=== PATIENT | female | born 1960 | race Caucasian/White ===

== ENCOUNTER 2021-09-06 15:23 | Outpatient (CLI) | payer BC | END 2021-09-06 15:24 | disposition home or self-care (01) | LOC: LABBT 15:23 | PROVIDERS: ATTEND Orthopaedic Surgery | DX: Z01.818 Encounter for other preprocedural examination (principal); M17.12 Unilateral primary osteoarthritis, left knee; Z20.822 Contact with and (suspected) exposure to COVID-19 | CPT/HCPCS: 71046; 93005; 93010 ==

== ENCOUNTER 2021-09-11 05:45 | Inpatient (IN) | payer BC ==
[2021-09-06 16:37] LABS: Bilirubin Neg (Negative); Blood, Urine Negative (Negative); Clarity Clear (Clear); Glucose, Urine (Dipstick) Normal (Negative); Ketone, Urine Negative (Negative); Leukocyte Negative (Negative); Nitrite Negative (Negative); Protein, Urine (Dipstick) 30 mg/dl (Neg-Trace)
[2021-09-06 16:46] LABS: Anion Gap 16 mmol/L (10-20); BUN (Urea Nitrogen) 16 mg/dL (9.8-20.1); Calc. Creatinine Clearance 0 mL/min (70-130); Calcium 9.4 mg/dL (7.8-10.44); Carbon Dioxide 24 mmol/L (23-31); Chloride 104 mmol/L (98-107); Estimated GFR 85; Glucose 104 mg/dL (80-115); Sodium 140 mmol/L (136-145)
[2021-09-06 17:03] LABS: INR-International Normal Ratio 0.9; Prothrombin Time 9.4 sec (9.5-12.1)
[2021-09-07 16:56] VITALS: BMI 38.0
[2021-09-11] MEDS ORDERED: Vancomycin 1.5 GRAM/300 ML BAG 1.5 GM in Premix Bag 1 BAG IVPB SCH (06:15)
[2021-09-11] MEDS ORDERED: fentaNYL Citrate/PF 100 MCG/2 ML SYRINGE ONE ×2 (06:17→08:06)
[2021-09-11] MEDS ORDERED: Dexmedetomidine 200 MCG/2 ML VIAL ONE (06:18)
[2021-09-11] MEDS ORDERED: Tranexamic Acid 1,000 MG/10 ML VIAL ONE (06:33)
[2021-09-11] MEDS ORDERED: Sodium Chloride 0.9% 100 ML ONE ×2 (06:33→06:53)
[2021-09-11] MEDS ORDERED: Vancomycin (BATCH) 1.5 GRAM/300 ML BAG ONE (06:42)
[2021-09-11] MEDS ORDERED: Promethazine HCl 25 MG/ML VIAL IM PRN ×3 (06:45→09:30)
[2021-09-11] MEDS ORDERED: Ondansetron HCl/PF 4 MG/2 ML Vial IVP PRN (06:45)
[2021-09-11] MEDS ORDERED: Promethazine HCl 25 MG/ML VIAL IVPB PRN (06:45)
[2021-09-11] MEDS ORDERED: Lidocaine 1% PF 5 ML VIAL ONE (06:51)
[2021-09-11] MEDS ORDERED: Bupivacaine HCl 0.5%/Epinephrine 1:200,000/PF 30 ml Vial ONE (06:51)
[2021-09-11] MEDS ORDERED: Ondansetron PF 4 MG/2 ML Vial ONE (06:51)
[2021-09-11] MEDS ORDERED: Dexamethasone 20 MG/5 ML VIAL ONE (06:51)
[2021-09-11] MEDS ORDERED: PROPOFOL 200 MG/20 ML VIAL ONE (06:51)
[2021-09-11] MEDS ORDERED: ePHEDrine 50 MG/ML VIAL ONE (06:51)
[2021-09-11] MEDS ORDERED: diphenhydrAMINE 50 MG/ML VIAL ONE (06:51)
[2021-09-11] MEDS ORDERED: Bupivacaine 0.25% HCL 30 ML VIAL ONE (06:53)
[2021-09-11] MEDS ORDERED: CEFAZOLIN 2 GM VIAL ONE (06:53)
[2021-09-11] MEDS ORDERED: Lidocaine 1% (PF) 30 ML VIAL ONE (07:09)
[2021-09-11 07:10] LABS: #Basophils 0.1 thou/uL (0.0-0.2); #Eosinphils 0.1 thou/uL (0.0-0.7); #Monocytes 0.8 thou/uL (0.11-0.59); #Neutrophils 4.7 thou/uL (1.40-6.50); %Basophils 0.7 % (0.0-1.0); %Eosinophils 1.2 % (0.0-10.0); %Lymphocytes 35.2 % (21.0-51.0); %Monocytes 8.9 % (0.0-10.0); Hemoglobin 13.8 g/dL (12.0-16.0); Mean Corpuscular HGB CONC 32.9 g/dL (32.0-36.0); Mean Corpuscular Hemoglobin 30.3 pg (27.0-31.0); Mean Corpuscular Volume 92.2 fL (78.0-98.0); Mean Platelet Volume 7.4 fL (7.4-10.4); Platelet Count 255 thou/uL (130-400); RBC Distribution Width 11.7 % (11.5-14.5); Red Blood Cell (RBC) Count 4.54 mill/uL (4.20-5.40); White Blood Cell (WBC) Count 8.7 thou/uL (4.8-10.8)
[2021-09-11 07:11] LABS: INR-International Normal Ratio 0.9; Prothrombin Time 12.6 sec (12.0-14.7)
[2021-09-11] MEDS ORDERED: HYDROcodone/Acetaminophen 10/325 mg Tablet PO PRN ×3 (07:52→09:30)
[2021-09-11] MEDS ORDERED: Zolpidem Tartrate 5 MG TAB PO PRN ×2 (07:52→09:30)
[2021-09-11] MEDS ORDERED: Acetaminophen 325 MG TAB PO PRN (07:52)
[2021-09-11] MEDS ORDERED: diphenhydrAMINE 25 MG CAP PO PRN (07:52)
[2021-09-11] MEDS ORDERED: Fentanyl 100 MCG/2 ML VIAL SLOW IVP PRN (07:52)
[2021-09-11] MEDS ORDERED: Ondansetron PF 4 MG/2 ML Vial IVP PRN ×2 (07:52→09:30)
[2021-09-11] MEDS ORDERED: traMADol HCl 50 MG TAB PO PRN ×2 (07:52→09:30)
[2021-09-11] MEDS ORDERED: Fluticasone Propionate Nasal Spray 16 gm Bottle NASAL PRN (07:55)
[2021-09-11] MEDS ORDERED: ceFAZolin 2 GM/Dextrose 50 ML 2 GM in Premix Bag 1 BAG IVPB SCH (08:00)
[2021-09-11] MEDS ORDERED: Tranexamic Acid 1,000 MG in Sodium Chloride 0.9% 100 ML IVPB SCH (08:00)
[2021-09-11] MEDS ORDERED: Non-Formulary Item 1 EACH (Losartan Potassium [Cozaar] 50 MG Tab) PO SCH (09:00)
[2021-09-11] MEDS ORDERED: Cetirizine HCl 10 MG TAB PO SCH (09:00)
[2021-09-11] MEDS ORDERED: Non-Formulary Item 1 EACH (Bupropion Hcl [Wellbutrin Xl] 300 MG Tab.Er.24h) PO SCH (09:00)
[2021-09-11] MEDS ORDERED: Levothyroxine 150 MCG TAB PO SCH (09:00)
[2021-09-11] MEDS ORDERED: Fentanyl 100 MCG/2 ML VIAL IV PRN (09:17)
[2021-09-11] MEDS ORDERED: Ropivacaine 0.2% 550 ML 550 ML NERVE BLCK SCH (09:30)
[2021-09-11] MEDS ORDERED: Fentanyl 100 MCG/2 ML VIAL ONE ×3 (09:46→11:41)
[2021-09-11] MEDS ORDERED: Ketorolac Tromethamine 30 MG/ML VIAL ONE (10:04)
[2021-09-11] MEDS: HYDROcodone/Acetaminophen 10/325 mg Tablet PO PRN ×3 (12:10→22:17)
[2021-09-11] MEDS: CEFAZOLIN 2 GM in Sodium Chloride 0.9% 100 ML IVPB SCH ×2 (13:16→22:24)
[2021-09-11] MEDS: Losartan 25 MG TAB PO SCH (13:17)
[2021-09-11] MEDS: Multivitamin W/ Minerals 1 TAB PO SCH (13:17)
[2021-09-11] MEDS: Pregabalin 50 MG CAP PO SCH ×3 (13:17→22:18)
[2021-09-11] MEDS: Bupropion 150 MG XL TAB PO SCH (13:18)
[2021-09-11] MEDS: Ferrous Gluconate 324 MG TAB PO SCH ×2 (13:18→22:17)
[2021-09-11] MEDS: Sodium Chloride 0.9% 1,000 ML IV SCH ×2 (13:19→18:17)
[2021-09-11] MEDS: Loratadine 10 MG TAB PO SCH (13:19)
[2021-09-11] MEDS: Senokot S 8.6-50 MG TAB PO SCH ×2 (13:19→22:18)
[2021-09-11] MEDS: Ketorolac Tromethamine 30 MG/ML VIAL IVP SCH ×3 (13:19→22:26)
[2021-09-11] MEDS: Aspirin 81 mg Enteric Coated Tablet PO SCH ×2 (13:21→22:18)
[2021-09-11] MEDS ORDERED: Ketorolac Tromethamine 30 MG/ML VIAL IVP SCH (14:00)
[2021-09-11] MEDS ORDERED: Vancomycin HCl 1.5 GM in Sodium Chloride 0.9% 250 ML 300 ML IVPB SCH (18:00)
[2021-09-11] MEDS: clonazePAM 1 MG TAB PO SCH (22:17)
[2021-09-12] MEDS: Ketorolac Tromethamine 30 MG/ML VIAL IVP SCH ×3 (05:10→17:28)
[2021-09-12] MEDS: HYDROcodone/Acetaminophen 10/325 mg Tablet PO PRN ×4 (05:11→19:05)
[2021-09-12 06:03] LABS: Hemoglobin 11.6 g/dL (12.0-16.0); Mean Corpuscular HGB CONC 33.2 g/dL (32.0-36.0); Mean Corpuscular Hemoglobin 30.7 pg (27.0-31.0); Mean Corpuscular Volume 92.4 fL (78.0-98.0); Mean Platelet Volume 8.7 fL (7.4-10.4); Platelet Count 179 thou/uL (130-400); RBC Distribution Width 11.6 % (11.5-14.5); Red Blood Cell (RBC) Count 3.77 mill/uL (4.20-5.40); White Blood Cell (WBC) Count 12.3 thou/uL (4.8-10.8)
[2021-09-12] MEDS: Levothyroxine 150 MCG TAB PO SCH (07:39)
[2021-09-12] MEDS: Sodium Chloride 0.9% 1,000 ML IV SCH ×2 (07:55→13:31)
[2021-09-12] MEDS: Senokot S 8.6-50 MG TAB PO SCH ×2 (09:10→22:36)
[2021-09-12] MEDS: Aspirin 81 mg Enteric Coated Tablet PO SCH ×2 (09:10→22:36)
[2021-09-12] MEDS: Ferrous Gluconate 324 MG TAB PO SCH ×2 (09:10→22:37)
[2021-09-12] MEDS: Multivitamin W/ Minerals 1 TAB PO SCH (09:10)
[2021-09-12] MEDS: Pregabalin 50 MG CAP PO SCH ×3 (09:11→22:36)
[2021-09-12] MEDS: Losartan 25 MG TAB PO SCH (09:11)
[2021-09-12] MEDS: Loratadine 10 MG TAB PO SCH (09:11)
[2021-09-12] MEDS: Bupropion 150 MG XL TAB PO SCH (09:17)
[2021-09-12] MEDS: traMADol HCl 50 MG TAB PO PRN ×2 (11:35→17:29)
[2021-09-12] MEDS ORDERED: Simethicone Chewable 80 MG TAB PO PRN (19:30)
[2021-09-12] MEDS: clonazePAM 1 MG TAB PO SCH (22:36)
[2021-09-13] MEDS: Ketorolac Tromethamine 30 MG/ML VIAL IVP SCH ×2 (00:14→06:02)
[2021-09-13] MEDS: Levothyroxine 150 MCG TAB PO SCH (06:01)
[2021-09-13] MEDS: HYDROcodone/Acetaminophen 10/325 mg Tablet PO PRN ×5 (06:01→21:32)
[2021-09-13 07:55] LABS: Hemoglobin 10.6 g/dL (12.0-16.0); Mean Corpuscular HGB CONC 33.6 g/dL (32.0-36.0); Mean Corpuscular Hemoglobin 31.1 pg (27.0-31.0); Mean Corpuscular Volume 92.7 fL (78.0-98.0); Mean Platelet Volume 7.5 fL (7.4-10.4); Platelet Count 194 thou/uL (130-400); RBC Distribution Width 11.7 % (11.5-14.5); Red Blood Cell (RBC) Count 3.39 mill/uL (4.20-5.40); White Blood Cell (WBC) Count 12.7 thou/uL (4.8-10.8)
[2021-09-13] MEDS: Sodium Chloride 0.9% 1,000 ML IV SCH ×3 (08:01→21:26)
[2021-09-13] MEDS: Bupropion 150 MG XL TAB PO SCH (10:19)
[2021-09-13] MEDS: Ferrous Gluconate 324 MG TAB PO SCH ×2 (10:19→21:31)
[2021-09-13] MEDS: Aspirin 81 mg Enteric Coated Tablet PO SCH ×2 (10:19→21:32)
[2021-09-13] MEDS: Pregabalin 50 MG CAP PO SCH ×3 (10:20→21:36)
[2021-09-13] MEDS: Loratadine 10 MG TAB PO SCH (10:20)
[2021-09-13] MEDS: Losartan 25 MG TAB PO SCH (10:20)
[2021-09-13] MEDS: Multivitamin W/ Minerals 1 TAB PO SCH (10:20)
[2021-09-13] MEDS: Metamucil PACK PO SCH ×2 (10:21→16:31)
[2021-09-13] MEDS: Senokot S 8.6-50 MG TAB PO SCH ×3 (10:21→21:39)
[2021-09-13] MEDS: traMADol HCl 50 MG TAB PO PRN (16:25)
[2021-09-13] MEDS: clonazePAM 1 MG TAB PO SCH (21:37)
[2021-09-14] MEDS: traMADol HCl 50 MG TAB PO PRN ×3 (03:25→20:49)
[2021-09-14] MEDS: Levothyroxine 150 MCG TAB PO SCH (05:42)
[2021-09-14] MEDS: HYDROcodone/Acetaminophen 10/325 mg Tablet PO PRN ×4 (05:42→18:33)
[2021-09-14 06:50] LABS: Mean Corpuscular HGB CONC 33.4 g/dL (32.0-36.0); Mean Corpuscular Hemoglobin 30.6 pg (27.0-31.0); Mean Corpuscular Volume 91.6 fL (78.0-98.0); Mean Platelet Volume 7.5 fL (7.4-10.4); Platelet Count 194 thou/uL (130-400); RBC Distribution Width 11.8 % (11.5-14.5); Red Blood Cell (RBC) Count 3.59 mill/uL (4.20-5.40); White Blood Cell (WBC) Count 12.2 thou/uL (4.8-10.8)
[2021-09-14] MEDS: Sodium Chloride 0.9% 1,000 ML IV SCH ×2 (10:12→14:26)
[2021-09-14] MEDS: Ferrous Gluconate 324 MG TAB PO SCH ×2 (10:15→20:48)
[2021-09-14] MEDS: Senokot S 8.6-50 MG TAB PO SCH ×2 (10:17→21:00)
[2021-09-14] MEDS: Bupropion 150 MG XL TAB PO SCH (10:17)
[2021-09-14] MEDS: Losartan 25 MG TAB PO SCH (10:18)
[2021-09-14] MEDS: Multivitamin W/ Minerals 1 TAB PO SCH ×2 (10:19→10:29)
[2021-09-14] MEDS: Loratadine 10 MG TAB PO SCH (10:19)
[2021-09-14] MEDS: Pregabalin 50 MG CAP PO SCH ×3 (10:19→20:48)
[2021-09-14] MEDS: Aspirin 81 mg Enteric Coated Tablet PO SCH ×2 (10:20→20:49)
[2021-09-14] MEDS: Metamucil PACK PO SCH ×2 (10:24→14:26)
[2021-09-14] MEDS: clonazePAM 1 MG TAB PO SCH (20:49)
[2021-09-15] MEDS: HYDROcodone/Acetaminophen 10/325 mg Tablet PO PRN ×5 (00:06→20:20)
[2021-09-15] MEDS: Sodium Chloride 0.9% 1,000 ML IV SCH ×3 (03:51→23:15)
[2021-09-15] MEDS: traMADol HCl 50 MG TAB PO PRN (04:53)
[2021-09-15] MEDS: Levothyroxine 150 MCG TAB PO SCH (04:54)
[2021-09-15 05:46] LABS: Hemoglobin 10.3 g/dL (12.0-16.0); Mean Corpuscular HGB CONC 32.5 g/dL (32.0-36.0); Mean Corpuscular Hemoglobin 30.5 pg (27.0-31.0); Mean Platelet Volume 7.4 fL (7.4-10.4); Platelet Count 222 thou/uL (130-400); RBC Distribution Width 11.7 % (11.5-14.5); Red Blood Cell (RBC) Count 3.36 mill/uL (4.20-5.40); White Blood Cell (WBC) Count 9.2 thou/uL (4.8-10.8)
[2021-09-15] MEDS: Bupropion 150 MG XL TAB PO SCH (07:55)
[2021-09-15] MEDS: Ferrous Gluconate 324 MG TAB PO SCH ×2 (07:55→20:19)
[2021-09-15] MEDS: Aspirin 81 mg Enteric Coated Tablet PO SCH ×2 (07:56→20:19)
[2021-09-15] MEDS: Pregabalin 50 MG CAP PO SCH ×3 (07:57→20:20)
[2021-09-15] MEDS: Loratadine 10 MG TAB PO SCH (07:58)
[2021-09-15] MEDS: Multivitamin W/ Minerals 1 TAB PO SCH (07:58)
[2021-09-15] MEDS: Losartan 25 MG TAB PO SCH (07:58)
[2021-09-15] MEDS: Metamucil PACK PO SCH (07:58)
[2021-09-15] MEDS: Senokot S 8.6-50 MG TAB PO SCH ×2 (07:58→21:04)
[2021-09-15] MEDS: Ibuprofen 600 MG TAB PO PRN ×2 (10:33→17:41)
[2021-09-15] MEDS: clonazePAM 1 MG TAB PO SCH (20:20)
[2021-09-16] MEDS: HYDROcodone/Acetaminophen 10/325 mg Tablet PO PRN ×4 (00:14→13:28)
[2021-09-16] MEDS: Ibuprofen 600 MG TAB PO PRN ×2 (00:15→09:27)
[2021-09-16] MEDS: Levothyroxine 150 MCG TAB PO SCH (05:57)
[2021-09-16 06:42] LABS: Mean Corpuscular HGB CONC 29.7 g/dL (32.0-36.0); Mean Corpuscular Hemoglobin 29.1 pg (27.0-31.0); Mean Platelet Volume 7.9 fL (7.4-10.4); Platelet Count 256 thou/uL (130-400); RBC Distribution Width 11.9 % (11.5-14.5); Red Blood Cell (RBC) Count 4.12 mill/uL (4.20-5.40); White Blood Cell (WBC) Count 8.1 thou/uL (4.8-10.8)
[2021-09-16] MEDS: Pregabalin 50 MG CAP PO SCH ×2 (09:26→16:20)
[2021-09-16] MEDS: Aspirin 81 mg Enteric Coated Tablet PO SCH (09:27)
[2021-09-16] MEDS: Bupropion 150 MG XL TAB PO SCH (09:27)
[2021-09-16] MEDS: Ferrous Gluconate 324 MG TAB PO SCH (09:30)
[2021-09-16] MEDS: Sodium Chloride 0.9% 1,000 ML IV SCH (09:30)
[2021-09-16] MEDS: Metamucil PACK PO SCH (09:31)
[2021-09-16] MEDS: Senokot S 8.6-50 MG TAB PO SCH (09:31)
[2021-09-16] MEDS: Loratadine 10 MG TAB PO SCH (09:31)
[2021-09-16] MEDS: Losartan 25 MG TAB PO SCH (09:31)
[2021-09-16] MEDS: Multivitamin W/ Minerals 1 TAB PO SCH (09:31)
[2021-09-16 11:33] VITALS: BP 124/63; TEMP 98.3
== END 2021-09-16 15:14 | disposition home or self-care (01) | DRG 470 ==
LOC: SDC 05:45 → SURG A 12:05 → EDSTATUS 16:15 → OBSVTOIN 09-13 09:53
PROVIDERS: ADMIT Orthopaedic Surgery; ATTEND Orthopaedic Surgery
PROC: 0SRD0J9 Replacement of Left Knee Joint with Synthetic Substitute, Cemented, Open Approach (ICD-10-PCS; principal; 2021-09-11)
DX: M17.12 Unilateral primary osteoarthritis, left knee (principal); Z20.822 Contact with and (suspected) exposure to COVID-19; M25.762 Osteophyte, left knee; E06.3 Autoimmune thyroiditis; Z79.890 Hormone replacement therapy; Z79.899 Other long term (current) drug therapy; Z98.51 Tubal ligation status; Z90.49 Acquired absence of other specified parts of digestive tract; Z90.710 Acquired absence of both cervix and uterus
CPT/HCPCS: 36415; 80048; 81003; 85025; 85027; 85610; 86850; 86900; 86901; 87081; 87811; 96365; 96375; 96376; A4306; C1713; C1776; G0378; J0690; J1100; J1200; J1885; J2001; J2405; J2704; J2795; J3010; J3370; J3490; J7050; S0020

== ENCOUNTER 2021-11-10 10:38 | Outpatient (CLI) | payer BC | END 2021-11-10 10:39 | disposition home or self-care (01) | LOC: RAD 10:38 | PROVIDERS: ATTEND Family Medicine | DX: M47.816 Spondylosis without myelopathy or radiculopathy, lumbar region (principal) | CPT/HCPCS: 72100 ==

== ENCOUNTER 2024-03-13 09:49 | Outpatient (CLI) | payer BC | END 2024-03-13 09:50 | disposition home or self-care (01) | LOC: RAD 09:49 | PROVIDERS: ATTEND Internal Medicine Critical Care Medicine | DX: R06.00 Dyspnea, unspecified (principal) | CPT/HCPCS: 71046 ==